=== PATIENT | male | born 1965 | race American Indian/Alaskan Native ===

== ENCOUNTER 2017-07-19 09:35 | Emergency (ER) | payer MEDICAID, SELFPAY ==
[2017-07-19 09:46] VITALS: BP 111/65
[2017-07-19 10:12] LABS: Hematocrit 44.1 % (35.5-45.6); Hemoglobin 14.5 gm/dl (11.8-15.2); Mean Corpuscular HGB Conc 33 % (32-34); Mean Corpuscular Hemoglobin 31 pg (28-32); Mean Corpuscular Volume 93 fl (84-94); Platelet Count 224 K/mm3 (140-440); Red Blood Count 4.73 M/mm3 (3.65-5.03); Red Cell Distribution Width 13.4 % (13.2-15.2)
--- NOTE | 2017-07-19 10:41 | XRay Report ---
CHEST XRAY, 2 VIEWS: History: Shortness of breath. Findings: There is mild diffuse interstitial coarsening. The lungs are hyperexpanded but clear. No infiltrate, pleural fluid or pneumothorax is detected. The cardiac silhouette and pulmonary vasculature are within normal limits for technique. The bony thorax is unremarkable. IMPRESSION: Changes consistent with COPD. No acute cardiopulmonary process.
[2017-07-19 10:46] LABS: Total Cells Counted 100
[2017-07-19 10:47] LABS: BUN/Creatinine Ratio 15; Blood Urea Nitrogen 15 mg/dL (9-20); Calcium 8.7 mg/dL (8.4-10.2); Hemolysis Index 16; Platelet Estimate Cons; RBC Morphology Normal
[2017-07-19] MEDS ORDERED: NACL 0.9% 1000 ML 1,000 ML IV ONE (13:07)
[2017-07-19] MEDS ORDERED: GUAIFENESIN DM SYRUP PO ONE (13:07)
[2017-07-19] MEDS ORDERED: DUONEB *Not for PRN Use IH ONE (13:07)
[2017-07-19] MEDS ORDERED: ZITHROMAX PO ONE (13:14)
--- NOTE | 2017-07-19 13:15 | Emergency Department Report ---
HPI - General Chief Complaint: Dyspnea/Respdistress Time Seen by Provider: 07/19/17 11:43 - HPI HPI: The patient's is a 52-year-old male who presents for evaluation of dyspnea. The patient has history of COPD. The patient reports cough and has constant dizziness since last night, severe since this morning, exacerbated with exertion or coughing, improved at rest. He also reports associated wheezing. The patient denies fever, trauma to the chest, syncope, chest pain, Hemoptysis, unilateral leg swelling, oral contraceptive use, recent immobilization, history of DVT or PE, hx of recent cancer. ED Past Medical Hx - Past Medical History Hx Congestive Heart Failure: No Hx Diabetes: No Hx Asthma: Yes Hx COPD: Yes - Surgical History Past Surgical History?: No - Social History Smoking Status: Current Every Day Smoker Substance Use Type: None - Medications Home Medications: Home Medications Medication Instructions Recorded Confirmed Last Taken Type ALBUTEROL Inhaler [ProAir HFA 2 puff IH QID PRN #1 inhalation 02/23/13 Unknown Rx Inhaler] Diltiazem [Cardizem] 30 mg PO Q6HR #120 tablet 02/23/13 Unknown Rx Nicotine [Habitrol] 21 mg TD QDAY #14 patch 02/23/13 Unknown Rx Prednisone 20 mg PO QDAY #30 tablet 02/23/13 Unknown Rx ALBUTEROL Inhaler [ProAir HFA 2 puff IH QID PRN #1 inhalation 07/19/17 Unknown Rx Inhaler] ALBUTEROL NEB's [Proventil 0.083% 2.5 mg IH TID PRN #30 neb 07/19/17 Unknown Rx NEBS] Azithromycin [Zithromax Z-HELADIO] 250 mg PO QDAY #6 tablet 07/19/17 Unknown Rx Benzonatate [Tessalon Perles] 100 mg PO Q8HR #20 capsule 07/19/17 Unknown Rx predniSONE [Deltasone] 20 mg PO QDAY #5 tab 07/19/17 Unknown Rx ED Review of Systems ROS: Stated complaint: PARKER/ASTHMA Other details as noted in HPI Constitutional: denies: fever ENT: denies: throat or neck pain Respiratory: reports cough, shortness of breath Cardiovascular: denies: chest pain Endocrine: denies unexplained weight loss or gain Gastrointestinal: denies: abdominal pain, nausea Genitourinary: denies: dysuria Musculoskeletal: denies: leg swelling Skin: denies: rash Neurological: denies: headache Hematological/Lymphatic: denies: easy bleeding or easy bruising Psych: denies sadness or hopelessness Physical Exam - Physical Exam Vital Signs: Vital Signs 07/19/17 09:43 Temperature 97.9 F Pulse Rate 95 H Blood Pressure 111/65 O2 Sat by Pulse 94 Oximetry Physical Exam: General: well-nourished, well-developed, no acute distress Head: Normocephalic, atraumatic Eyes: normal sclera ENT: Mucous membranes are pink and moist Neck: trachea midline, neck supple, No neck stiffness, no cervical adenopathy Respiratory: Diminished breath sounds and wheezing present throughout lung is bilaterally, mild bp-basilar rales are present, no costal retractions, no respiratory distress Cardio: S1 and S2 present, no murmurs, rubs, gallops, capillary refill is brisk Abdomen: Normoactive bowel sounds, soft abdomen, no rigidity, no guarding or rebound tenderness Chest WALL/Back: No tenderness to palpation of the chest wall, no CVA tenderness with percussion Musc: No pitting edema Skin: No rash Neuro: no facial drooping, normal speech Psych: Normal affect ED Course Vital Signs 07/19/17 09:43 Temperature 97.9 F Pulse Rate 95 H Blood Pressure 111/65 O2 Sat by Pulse 94 Oximetry ED Medical Decision Making - Lab Data Result diagrams: 07/19/17 09:53 07/19/17 09:53 - Medical Decision Making The patient was seen and examined by myself. The patient is placed on a residential monitor and continuous pulse ox. On initial evaluation, the patient was found to be in no distress. Evaluation orders were placed. The patient is given a breathing treatment and steroids for txt of COPD. Chest x-ray negative for focal consolidation, pleural effusions, pulmonary congestion, pneumothorax, or other acute cardio pulmonary disease process. Lab results are grossly not concerning. The patient was reevaluated and reported that their symptoms were markedly improved. On reexamination the patient is found to have normal respiratory rate and O2 sat on pulse oximetry, with no costal retractions or diminishment of breath sounds on auscultation. The patient is stable for discharge with outpatient follow-up. The patient is given follow-up and return instructions. The patient expressed understanding and agreed with the plan. The patient is discharged in stable condition. Critical care attestation.: If time is entered above; I have spent that time in minutes in the direct care of this critically ill patient, excluding procedure time. ED Disposition Clinical Impression: Dehydration, Acute upper respiratory infection, unspecified Asthma exacerbation Qualifiers: Asthma severity: mild Asthma persistence: intermittent Qualified Code(s): J45.21 - Mild intermittent asthma with (acute) exacerbation Disposition: TO HOME OR SELFCARE Is pt being admited?: No Does the pt Need Aspirin: No Condition: Stable Instructions: Asthma (ED), Upper Respiratory Infection (ED) Referrals: PRIMARY CARE, [Primary Care Provider] - 3-5 Days Time of Disposition: 13:14
== END 2017-07-19 14:35 | disposition home or self-care (01) ==
LOC: ED 09:35
DX: J45.21 Mild intermittent asthma with (acute) exacerbation (principal); J44.9 Chronic obstructive pulmonary disease, unspecified; J06.9 Acute upper respiratory infection, unspecified; E86.0 Dehydration; F17.200 Nicotine dependence, unspecified, uncomplicated
CPT/HCPCS: 36415; 71046; 80048; 85007; 85025; 93005; 93010; 94640; 96361; 96374; 99284; J2930; J7030

== ENCOUNTER 2017-07-24 08:45 | Emergency (ER) | payer MEDICAID ==
--- NOTE | 2017-07-24 10:31 | Emergency Department Report ---
ED Shortness of Breath HPI - General Chief Complaint: Dyspnea/Respdistress Stated Complaint: DIFFICULTY BREATHING Time Seen by Provider: 07/24/17 10:24 Source: patient Mode of arrival: Ambulatory Limitations: No Limitations - History of Present Illness Initial Comments: Patient is 52 years old male history of asthma and COPD. Patient presents to the ER complaining of shortness of breath, cough productive with clear sputum. Patient denied any fever or chest pain. No nausea or vomiting. MD Complaint: shortness of breath, cough, "asthma attack" -: This morning Known History Of: COPD, asthma Associated Symptoms: cough, sputum production - Related Data Previous Rx's Medication Instructions Recorded Last Taken Type ALBUTEROL Inhaler [ProAir HFA 2 puff IH QID PRN #1 inhalation 02/23/13 Unknown Rx Inhaler] Diltiazem [Cardizem] 30 mg PO Q6HR #120 tablet 02/23/13 Unknown Rx Nicotine [Habitrol] 21 mg TD QDAY #14 patch 02/23/13 Unknown Rx Prednisone 20 mg PO QDAY #30 tablet 02/23/13 Unknown Rx ALBUTEROL Inhaler [ProAir HFA 2 puff IH QID PRN #1 inhalation 07/19/17 Unknown Rx Inhaler] ALBUTEROL NEB's [Proventil 0.083% 2.5 mg IH TID PRN #30 neb 07/19/17 Unknown Rx NEBS] Azithromycin [Zithromax Z-HELADIO] 250 mg PO QDAY #6 tablet 07/19/17 Unknown Rx Benzonatate [Tessalon Perles] 100 mg PO Q8HR #20 capsule 07/19/17 Unknown Rx predniSONE [Deltasone] 20 mg PO QDAY #5 tab 07/19/17 Unknown Rx Allergies Allergy/AdvReac Type Severity Reaction Status Date / Time No Known Allergies Allergy Verified 02/17/13 06:25 ED Review of Systems ROS: Stated complaint: DIFFICULTY BREATHING Other details as noted in HPI Comment: All other systems reviewed and negative Constitutional: denies: chills, fever Respiratory: cough, shortness of breath, SOB with exertion, wheezing Cardiovascular: chest pain (tightness). denies: palpitations, dyspnea on exertion, orthopnea, edema, syncope, paroxysmal nocturnal dyspnea Gastrointestinal: denies: abdominal pain, nausea, vomiting, diarrhea, constipation, hematemesis Neurological: denies: headache, weakness, numbness, paresthesias ED Past Medical Hx - Past Medical History Previous Medical History?: Yes Hx Congestive Heart Failure: No Hx Diabetes: No Hx Asthma: Yes Hx COPD: Yes - Surgical History Past Surgical History?: No - Social History Smoking Status: Current Every Day Smoker Substance Use Type: Alcohol, Marijuana - Medications Home Medications: Home Medications Medication Instructions Recorded Confirmed Last Taken Type ALBUTEROL Inhaler [ProAir HFA 2 puff IH QID PRN #1 inhalation 02/23/13 Unknown Rx Inhaler] Diltiazem [Cardizem] 30 mg PO Q6HR #120 tablet 02/23/13 Unknown Rx Nicotine [Habitrol] 21 mg TD QDAY #14 patch 02/23/13 Unknown Rx Prednisone 20 mg PO QDAY #30 tablet 02/23/13 Unknown Rx ALBUTEROL Inhaler [ProAir HFA 2 puff IH QID PRN #1 inhalation 07/19/17 Unknown Rx Inhaler] ALBUTEROL NEB's [Proventil 0.083% 2.5 mg IH TID PRN #30 neb 07/19/17 Unknown Rx NEBS] Azithromycin [Zithromax Z-HELADIO] 250 mg PO QDAY #6 tablet 07/19/17 Unknown Rx Benzonatate [Tessalon Perles] 100 mg PO Q8HR #20 capsule 07/19/17 Unknown Rx predniSONE [Deltasone] 20 mg PO QDAY #5 tab 07/19/17 Unknown Rx ED Physical Exam - General Limitations: No Limitations General appearance: alert, in no apparent distress - Head Head exam: Present: atraumatic, normocephalic - Eye Eye exam: Present: normal appearance, PERRL - ENT ENT exam: Present: normal exam, normal orophraynx, mucous membranes moist - Respiratory Respiratory exam: Present: normal lung sounds bilaterally, wheezes, decreased breath sounds, prolonged expiratory. Absent: respiratory distress, rales, rhonchi, chest wall tenderness, accessory muscle use - Cardiovascular Cardiovascular Exam: Present: regular rate, normal rhythm, normal heart sounds. Absent: bradycardia, tachycardia, irregular rhythm, systolic murmur, rubs - GI/Abdominal GI/Abdominal exam: Present: soft, normal bowel sounds. Absent: distended, tenderness, guarding, rebound, rigid, organomegaly, mass, bruit, pulsatile mass , hernia - Extremities Exam Extremities exam: Present: normal inspection, full ROM, normal capillary refill - Back Exam Back exam: Present: normal inspection, full ROM. Absent: tenderness, CVA tenderness (R), CVA tenderness (L), muscle spasm, paraspinal tenderness - Neurological Exam Neurological exam: Present: alert, oriented X3, CN II-XII intact, normal gait, reflexes normal - Skin Skin exam: Present: warm, intact, normal color ED Course Vital Signs 07/24/17 07/24/17 07/24/17 09:26 09:36 11:18 Temperature 98 F Pulse Rate 84 Pulse Rate [ 74 Bilateral Upper Lobe] Respiratory 20 20 Rate Respiratory 18 Rate [Bilateral Upper Lobe] Blood Pressure 112/82 O2 Sat by Pulse 98 98 Oximetry 07/24/17 11:33 Temperature Pulse Rate Pulse Rate [ 75 Bilateral Upper Lobe] Respiratory Rate Respiratory 18 Rate [Bilateral Upper Lobe] Blood Pressure O2 Sat by Pulse Oximetry - Reevaluation(s) Reevaluation #1: 07/24/17 14:27 Patient stated that he is feeling much better. Chest pain and shortness of breath completely resolved. Patient had 2 negative troponins in the ER. I counseled the patient about his cocaine abuse and I advised him to follow up with his primary care physician in the next 2-3 days. ED Medical Decision Making - Lab Data Result diagrams: 07/24/17 10:46 07/24/17 10:46 - EKG Data -: EKG Interpreted by Me EKG shows normal: sinus rhythm Rate: normal - EKG Data Interpretation: no acute changes - Radiology Data Radiology results: report reviewed Critical care attestation.: If time is entered above; I have spent that time in minutes in the direct care of this critically ill patient, excluding procedure time. ED Disposition Clinical Impression: Shortness of breath, Asthma exacerbation, Chest pain, Cocaine abuse Disposition: -01 TO HOME OR SELFCARE Is pt being admited?: No Condition: Stable Instructions: Chest Pain (ED), Asthma (ED), Cocaine Abuse (ED) Referrals: PRIMARY CARE, [Primary Care Provider] - 3-5 Days
[2017-07-24] MEDS ORDERED: XOPENEX IH ONE (10:32)
[2017-07-24 11:05] LABS: Basophils % (Auto) 0.5 % (0.0-1.8); Eosinophils # (Auto) 0.2 K/mm3 (0.0-0.4); Eosinophils % (Auto) 2.4 % (0.0-4.3); Hematocrit 39.1 % (35.5-45.6); Hemoglobin 13.8 gm/dl (11.8-15.2); Lymphocytes # (Auto) 0.8 K/mm3 (1.2-5.4); Mean Corpuscular HGB Conc 35 % (32-34); Mean Corpuscular Hemoglobin 32 pg (28-32); Mean Corpuscular Volume 91 fl (84-94); Monocytes # (Auto) 0.2 K/mm3 (0.0-0.8); Monocytes % (Auto) 2.2 % (0.0-7.3); Platelet Count 204 K/mm3 (140-440); Red Blood Count 4.31 M/mm3 (3.65-5.03); Red Cell Distribution Width 12.4 % (13.2-15.2)
[2017-07-24 11:15] LABS: BUN/Creatinine Ratio 18; Blood Urea Nitrogen 16 mg/dL (9-20); Calcium 8.4 mg/dL (8.4-10.2); Hemolysis Index 24
[2017-07-24] MEDS: ATROVENT IH ONE (11:15)
--- NOTE | 2017-07-24 11:32 | XRay Report ---
AP CHEST :07/24/17 09:40 CLINICAL: Difficulty breathing. COMPARISON:07/19/17 FINDINGS: Normal heart and pulmonary vasculature. The lungs are normally expanded and clear. The bones and soft tissues are normal. IMPRESSION: Normal chest.
[2017-07-24 11:43] LABS: Amphetamine Screen,Urine PRESUMPTIVE NEGATIVE; Benzodiazepines Screen,Urine PRESUMPTIVE NEGATIVE; Cannabinoid Screen,Urine PRESUMPTIVE NEGATIVE; Methadone Screen,Urine PRESUMPTIVE NEGATIVE; Opiate Screen,Urine PRESUMPTIVE NEGATIVE
[2017-07-24 12:06] LABS: Cocaine Screen,Urine PRESUMPTIVE POSITIVE
[2017-07-24 15:02] VITALS: BP 112/70
== END 2017-07-24 15:02 | disposition home or self-care (01) ==
LOC: ED 08:45
DX: J45.901 Unspecified asthma with (acute) exacerbation (principal); F17.200 Nicotine dependence, unspecified, uncomplicated
CPT/HCPCS: 36415; 71045; 80048; 80307; 84484; 85025; 93005; 93010; 94640; 96374; 99284; J2930